=== PATIENT | male | born 1965 | race Caucasian/White ===

== ENCOUNTER 2018-11-28 09:14 | Emergency (ER) | payer BC, MEDICAID ==
[~2018-11-28] VITALS: Ht 185.4 cm; Wt 155.8 kg
[2018-11-28 10:25] VITALS: BP 141/74
== END 2018-11-28 10:40 | disposition home or self-care (01) ==
LOC: ER 09:14
DX: G51.0 Bell's palsy (principal); I10 Essential (primary) hypertension
CPT/HCPCS: 82962; 99284

== ENCOUNTER 2025-02-25 23:15 | Emergency (ER) | payer MEDICAID ==
[~2025-02-25] VITALS: Ht 185.4 cm; Wt 148.0 kg
[2025-02-25 23:31] VITALS: O2SAT 99
[2025-02-25 23:35] VITALS: BP 125/89; PULSE 95; RESP 16; TEMP 36.8; O2SAT 99
== END 2025-02-26 01:48 | disposition home or self-care (01) ==
LOC: ER 23:15
DX: R13.10 Dysphagia, unspecified (principal); J02.9 Acute pharyngitis, unspecified; E11.9 Type 2 diabetes mellitus without complications; E78.00 Pure hypercholesterolemia, unspecified; I10 Essential (primary) hypertension; Z98.890 Other specified postprocedural states
CPT/HCPCS: 70360; 99283